=== PATIENT | male | born 1970 | race Two or more races ===

== ENCOUNTER 2022-05-07 17:44 | Emergency (ER) | payer MEDICAID, OTHER ==
[~2022-05-07] VITALS: Ht 182.9 cm; Wt 75.0 kg
[2022-05-07 17:46] VITALS: BP 139/86
== END 2022-05-08 00:17 | disposition left against medical advice (07) ==
LOC: ER 17:44
DX: R05.9 Cough, unspecified (principal); Z53.21 Procedure and treatment not carried out due to patient leaving prior to being seen by health care provider